=== PATIENT | male | born 1980 | race Caucasian/White ===

== ENCOUNTER 2019-01-31 01:13 | Emergency (ER) | payer SELFPAY ==
[2019-01-31] MEDS ORDERED: PENICILLIN G BENZATHINE 1.2 MILLION UNIT/2 ML DISP.SYRIN IM ONE (03:53)
--- NOTE | 2019-01-31 04:01 | ER Document Report ---
ED Skin Rash/Insect Bite/Abscs - General Chief Complaint: Skin Problem Stated Complaint: LEG SWELLING/INSECT BITE Time Seen by Provider: 01/31/19 03:33 Notes: Healthy 39-year-old male with no medical problems presents to the emergency department with chief complaint of left leg swelling, redness, warmth that started this morning. Patient states on January 23 he was bit by several fire ants and had a normal response and the bites were in the healing stages and scabbing up when he noticed this morning that he was having the redness and it is some type of secondary infection. Patient states that he kind of felt hot and cold flashes and was concerned because he has some tenderness along the medial aspect of his leg from his ankle up to his groin. Patient is able to bear weight on it and has some mild discomfort. Patient denies any rash, nausea or vomiting, respiratory distress. No other complaints TRAVEL OUTSIDE OF THE [place] IN LAST 30 DAYS: No - Related Data Allergies/Adverse Reactions: No Known Drug Allergies Allergy (Verified 01/31/19 01:17) Past Medical History - Social History Smoking Status: Unknown if Ever Smoked Family History: None Review of Systems - Review of Systems Constitutional: See HPI EENT: No symptoms reported Cardiovascular: No symptoms reported Respiratory: See HPI Gastrointestinal: See HPI Genitourinary: No symptoms reported Male Genitourinary: No symptoms reported Musculoskeletal: No symptoms reported Skin: See HPI Hematologic/Lymphatic: No symptoms reported Neurological/Psychological: No symptoms reported Physical Exam - Vital signs Vitals: Temp Pulse Resp BP Pulse Ox 98.8 F 45 L 16 173/113 H 100 01/31/19 01:17 01/31/19 01:17 01/31/19 01:17 01/31/19 01:17 01/31/19 01:17 - Notes Notes: PHYSICAL EXAMINATION: Reviewed vital signs and charting by RN GENERAL: Alert, interacts well. No acute distress. HEAD: Normocephalic, atraumatic. EYES: Pupils equal and round. Extraocular movements intact. ENT: Oral mucosa moist, tongue midline. NECK: Full range of motion. Trachea midline. LUNGS: Clear to auscultation bilaterally, no wheezes, rales, or rhonchi. No respiratory distress. HEART: Regular rate and rhythm. No murmur ABDOMEN: soft, non-tender. No distention. Bowel sounds present EXTREMITIES: Moves all 4 extremities spontaneously. Who left lower extremity edema compared to right from the mid calf to the groin. There is erythema on the medial aspect and posterior aspect of the left proximal lower extremity with some redness on the medial distal left lower extremity. There are multiple healing bites on the dorsal aspect of the patient's left foot. PSYCH: Normal affect, normal mood. SKIN: Warm, dry, normal turgor. No rashes or lesions noted. Course - Re-evaluation Re-evalutation: 01/31/19 04:05 Patient is overall well-appearing and nontoxic. Presentation is consistent with a secondary infection that appears to be cellulitis. Patient will get a dose of penicillin G IM once here in the emergency department and will place him on Keflex. Patient does not have diabetes and no history of MRSA. This briefly discussed with attending physician, Dr. Quiroz. Patient is stable for discharge - Vital Signs Vital signs: Temp Pulse Resp BP Pulse Ox 98.8 F 45 L 16 173/113 H 100 01/31/19 01:17 01/31/19 01:17 01/31/19 01:17 01/31/19 01:17 01/31/19 01:17 Discharge - Discharge Clinical Impression: Fire ant bite Qualifiers: Encounter type: initial encounter Injury intent: accidental or unintentional Qualified Code(s): T63.421A - Toxic effect of venom of ants, accidental (unintentional), initial encounter Cellulitis Qualifiers: Site of cellulitis: extremity Site of cellulitis of extremity: lower extremity Laterality: left Qualified Code(s): L03.116 - Cellulitis of left lower limb Condition: Good Disposition: HOME, SELF-CARE Additional Instructions: The rash is likely due to infection of your skin. You need to take the antibiotics as prescribed. Do not stop even if the rash goes away until you have completed all the antibiotics. The area of redness was traced out here in the emergency department with a marking pen. You need to return to emergency department if the redness spreads outside of this area by more than 2 cm in any direction. You should also return if you develop fevers with temperature greater than 101, persistent vomiting, worsening pain, or have any other s ymptoms that are concerning to you. Prescriptions: Cephalexin Monohydrate [Keflex 500 mg Capsule] 500 mg PO Q6H 7 Days capsule
[2019-01-31 05:03] VITALS: BP 148/98
== END 2019-01-31 04:45 | disposition home or self-care (01) ==
LOC: ER 01:13
DX: T63.421A Toxic effect of venom of ants, accidental (unintentional), initial encounter (principal); L03.116 Cellulitis of left lower limb; X58.XXXA Exposure to other specified factors, initial encounter
CPT/HCPCS: 99283; 96372; J0561